=== PATIENT | female | born 1975 | race Caucasian/White ===

== ENCOUNTER 2019-01-24 11:39 | Day surgery (SDC) | payer MEDICAID ==
[~2019-01-24] VITALS: Ht 172.7 cm; Wt 55.0 kg
[~2019-01-24 11:39] MED LIST: SODIUM CHLORIDE 0.9% 1,000 ML IV ONE
[2019-01-24 12:44] LABS: HCG,QUANTITATIVE < 1 mIU/mL (0-6); POTASSIUM 3.8 mmol/L (3.5-5.1)
[2019-01-24] MEDS: SODIUM CHLORIDE 0.9% 1,000 ML IV ONE (12:48)
[2019-01-24] MEDS ORDERED: MULT-1291 PO (13:28)
[2019-01-26] MEDS ORDERED: HYDR30CR3 TP (11:16)
[2019-01-26] MEDS ORDERED: DSS100 PO (11:17)
== END 2019-01-24 13:25 | disposition other institution (70) ==
LOC: SURGERY 11:39
PROVIDERS: ATTEND Student in an Organized Health Care Education/Training Program
DX: R19.4 Change in bowel habit (principal); Z53.8 Procedure and treatment not carried out for other reasons; Z98.890 Other specified postprocedural states
CPT/HCPCS: 83735; 84132; 93005; J7030